=== PATIENT | female | born 1935 | race Caucasian/White ===

== ENCOUNTER 2022-05-03 21:36 | Inpatient (IN) ==
[2022-05-03] MEDS ORDERED: SODIUM CHLORIDE 0.9% 1000ML 1,000 ML IV ONE (21:41)
--- NOTE | 2022-05-03 21:44 | Emergency Department Note ---
Impression & Plan COVID-19 ADMIT ED Provider Note HPI: The patient is an 86-year-old female who presents the emergency department with hypotension and respiratory distress. Patient was found with altered mental status earlier this evening by family. She reportedly had been ill over the past several days with diarrhea and cough. According to family member at the bedside when they returned home patient was not responsive and EMS was contacted. Patient's daughter, Bambi, is at the bedside when the patient arrives with EMS, states that the patient is DNR/DNI. On arrival here to the ED the patient is very frail appearing, appears critically ill, she is hypotensive in the 70s systolic, she is saturating in the mid 90s on nonrebreather mask and exhibits limited responsiveness with sternal rub. ROS: -Neuro: Lethargy, altered mental status -Pulmonary: Respiratory distress, increased work of breathing *10 point review systems was conducted and is otherwise negative unless stated above *Outpatient medications and allergy history reviewed PE: General: Lethargic, frail-appearing, pale HEENT: Normocephalic, trachea midline Eyes: Pupils reactive bilaterally to light Pulmonary: Tachypnea with diminished breath sounds bilaterally Cardio: Regular rate and rhythm GI: Abdomen is soft, nontender, nondistended : No suprapubic tenderness MSK: No evidence of trauma or malformation of the extremities, no edema Skin: No evidence of rash Neuro: Lethargic, minimally responsive Psychiatric: N/A front desk monitor: - An order was placed for continuous cardiac monitoring - Patient was noted to be in sinus rhythm with a rate of 76 EKG: Rate: 67 Rhythm: Normal sinus rhythm Intervals: DE interval prolonged at 208 ms, QTC 507 ms, QRS within normal limits ST changes: No acute ST elevation Time: 2157 Interventions provided in ED: -IV morphine, IV glycopyrrolate Medical Decision Making: Patient presented to the emergency department with lethargy, hypotension, respiratory distress, altered mental status. This was noted by family when they found her earlier this evening. She had been ill for several days reportedly with cough and diarrhea. On arrival here to the ED the patient appears to be critically ill, she is minimally responsive even to sternal rub. Her daughter is at the bedside and states that the patient is DNR/DNI, I feel that resuscitative efforts at this point would be unlikely to result in any successful/meaningful outcome for the patient's recovery given her current clinical appearance, I did discuss this with the patient's daughter at the bedside and at this time she states that she would like to make the patient comfort measures only, I feel that this is reasonable given her age and current condition with poor prognosis. Some lab work and testing was initiated prior to this discussion and patient is positive for COVID-19, this was likely playing a role in her symptoms. She is also noted to have significant leukocytosis and is likely suffering from sepsis causing her hypotension and respiratory distress. Supplemental oxygen was removed, patient was given a dose of glycopyrrolate and a small dose of morphine for her work of breathing and comfort. Case was discussed with the on-call hospitalist for [facility], Dr. Keen, and the patient was admitted for hospice and end-of-life care. Patient's daughter at the bedside was in agreement to the above plan the patient was admitted for comfort measures. * CRITICAL CARE TIME: (33) minutes -Time spent at the bedside in discussion with family in regards to patient with critical condition requiring arrangement of comfort measures and end-of-life care, discussion with other physicians and arrangement of admission Diagnosis: 1. Altered mental status/lethargy 2. COVID-19 infection 3. Hypotension 4. Comfort measures only CODE STATUS Disposition: Admission Michi Sam DO Emergency Medicine Past Med/Surg History Medical History (Updated 05/04/22 @ 03:00 by Chang Paez MD) HLD (hyperlipidemia) HTN (hypertension) Family History (Updated 11/01/18 @ 23:56 by Joann Dumont) Other No significant family history Social History Smoking Status: Never smoker Preferred Language: Amharic Feels Safe at Home: Yes and Declines to Answer Allergies Allergies Allergy/AdvReac Type Severity Reaction Status Date / Time No Known Allergies Allergy Verified 05/03/22 22:02 Home Meds Home Medications Medication Instructions Recorded Confirmed atenolol 50 mg tablet 100 mg PO DAILY 11/01/18 05/03/22 folic acid 1 mg tablet 1 mg PO HS 11/01/18 05/03/22 hydrochlorothiazide 25 mg tablet 25 mg PO DAILY 11/01/18 05/03/22 niacin 500 mg tablet 500 mg PO AMPM 11/01/18 05/03/22 nifedipine 30 mg tablet,extended 30 mg PO DAILYBB 11/01/18 05/03/22 release 24 hr potassium chloride 10 mEq 10 meq PO DAILY 11/01/18 05/03/22 tablet,extended release aspirin 81 mg tablet,delayed 81 mg PO DAILY 05/03/22 05/03/22 release calcium carbonate 600 mg-vitamin 1 tab PO BID 05/03/22 05/03/22 D3 5 mcg (200 unit) tablet (Calcium 600 + D(3)) simvastatin 10 mg tablet 10 mg PO 2XWK 05/03/22 05/03/22 Results & Data (ED) Vital Signs Vital Signs - 24 hr 05/03/22 21:51 05/03/22 22:12 05/03/22 21:47 Temperature 34.4 C L 34.4 C L Temperature Source Rectal Rectal Pulse Rate 68 77 Pulse Rate [Apical] Pulse Rate from SpO2 Sensor 63 Respiratory Rate 30 H 17 Respiratory Depth Shallow Blood Pressure Blood Pressure Mean Pulse Oximetry 100 91 Oxygen Delivery Method Non-rebreather Oxygen Flow Rate 15 Sepsis Recent Fever Within 48 Hours No Sepsis New/Unexplained Change in Mental Status Yes Sepsis Action Taken by Nursing No Action Required 05/03/22 21:56 05/03/22 21:56 05/03/22 22:00 Temperature Temperature Source Pulse Rate 67 66 Pulse Rate [Apical] Pulse Rate from SpO2 Sensor 68 65 Respiratory Rate 26 H 25 H Respiratory Depth Blood Pressure Blood Pressure Mean 84 Pulse Oximetry 100 100 Oxygen Delivery Method Oxygen Flow Rate Sepsis Recent Fever Within 48 Hours Sepsis New/Unexplained Change in Mental Status Sepsis Action Taken by Nursing 05/03/22 22:15 05/03/22 22:16 05/03/22 22:16 Temperature Temperature Source Pulse Rate 63 68 Pulse Rate [Apical] Pulse Rate from SpO2 Sensor 62 63 Respiratory Rate 24 24 Respiratory Depth Blood Pressure 79/68 L Blood Pressure Mean 71 Pulse Oximetry 100 99 Oxygen Delivery Method Room Air Oxygen Flow Rate Sepsis Recent Fever Within 48 Hours Sepsis New/Unexplained Change in Mental Status Sepsis Action Taken by Nursing 05/03/22 23:43 Temperature Temperature Source Pulse Rate Pulse Rate [Apical] 75 Pulse Rate from SpO2 Sensor Respiratory Rate 12 Respiratory Depth Blood Pressure Blood Pressure Mean Pulse Oximetry 96 Oxygen Delivery Method Room Air Oxygen Flow Rate Sepsis Recent Fever Within 48 Hours Sepsis New/Unexplained Change in Mental Status Sepsis Action Taken by Nursing Laboratory Data Result diagrams: 05/03/22 22:26 05/03/22 22:26 Lab Results 05/03/22 05/03/22 05/03/22 Range/Units 22:26 22:26 22:26 WBC 25.26 H (4.8-10.8) K/ul RBC 3.44 L (3.93-5.22) M/uL Hgb 10.9 L (12.0-16.0) g/dl Hct 31.3 L (34.1-44.9) % MCV 91.0 (80.0-100.0) fL MCH 31.7 (25.0-34.0) pg MCHC 34.8 (32.0-36.0) g/dL RDW Std Deviation 49.3 H (36.4-46.3) fL RDW Coeff of Donna 15.2 H (11.5-14.5) % Plt Count 287 (130-400) K/uL MPV 12.1 (9.4-12.3) fL Immature Gran % (Auto) 1.5 % Neut % (Auto) 91.6 % Lymph % (Auto) 3.3 % Forest % (Auto) 2.5 % Eos % (Auto) 0.7 % Baso % (Auto) 0.4 % Neut # (Auto) 23.13 H (1.4-6.5) K/uL Lymph # (Auto) 0.84 L (1.2-3.4) K/uL Forest # (Auto) 0.64 (0.24-0.82) K/uL Eos # (Auto) 0.17 (0-0.50) K/uL Baso # (Auto) 0.11 (0-0.2) K/uL Immature Gran # (Auto) 0.37 H (0.00-0.02) K/uL Absolute Nucleated RBC 0.16 H (0-0) K/uL Nucleated RBC % (auto) 0.6 % Acanthocytes (Spur) 2+ VBG pH (7.36-7.41) VBG pCO2 (38-50) mmHg VBG pO2 mmHg VBG HCO3 mmol/L VBG O2 Saturation % VBG Base Excess mEq/L Sodium 145 (136-145) mmol/L Potassium 4.6 (3.5-5.1) mmol/L Chloride 104 (98-107) mmol/L Carbon Dioxide 16 L (21-32) mmol/L Anion Gap 25 H (3-11) BUN 232 H (6-23) mg/dl Creatinine 4.62 H* (0.6-1.2) mg/dl Est Cr Clr Drug Dosing 8.2 ml/min Est GFR ( Amer) 9.2 ml/min Est GFR (Non-Af Amer) 7.9 ml/min BUN/Creatinine Ratio 50.2 H (10-20) Glucose 117 H (70-99(Fasting)) mg/dl Lactate Calcium 8.6 (8.5-10.1) mg/dl Magnesium 2.7 H (1.7-2.4) mg/dl Total Bilirubin 2.0 H (0.2-1.0) mg/dl Direct Bilirubin 1.0 H (0-0.2) mg/dl AST 29 (13-39) U/L ALT 13 (7-52) U/L Alkaline Phosphatase 72 (34-104) U/L Troponin I High Sens 49.2 H (0-14) pg/ml Total Protein 6.4 (6.0-8.3) gm/dl Albumin 2.7 L (3.4-5.0) gm/dl Procalcitonin 5.80 H (0-0.5) ng/ml SARS-CoV-2, RNA, NAAT (NEGATIVE) 05/03/22 05/03/22 05/03/22 Range/Units 22:26 22:35 23:00 WBC (4.8-10.8) K/ul RBC (3.93-5.22) M/uL Hgb (12.0-16.0) g/dl Hct (34.1-44.9) % MCV (80.0-100.0) fL MCH (25.0-34.0) pg MCHC (32.0-36.0) g/dL RDW Std Deviation (36.4-46.3) fL RDW Coeff of Donna (11.5-14.5) % Plt Count (130-400) K/uL MPV (9.4-12.3) fL Immature Gran % (Auto) % Neut % (Auto) % Lymph % (Auto) % Forest % (Auto) % Eos % (Auto) % Baso % (Auto) % Neut # (Auto) (1.4-6.5) K/uL Lymph # (Auto) (1.2-3.4) K/uL Forest # (Auto) (0.24-0.82) K/uL Eos # (Auto) (0-0.50) K/uL Baso # (Auto) (0-0.2) K/uL Immature Gran # (Auto) (0.00-0.02) K/uL Absolute Nucleated RBC (0-0) K/uL Nucleated RBC % (auto) % Acanthocytes (Spur) VBG pH 7.31 L (7.36-7.41) VBG pCO2 34 L (38-50) mmHg VBG pO2 30 mmHg VBG HCO3 17 mmol/L VBG O2 Saturation < 60.0 % VBG Base Excess -8.2 mEq/L Sodium (136-145) mmol/L Potassium (3.5-5.1) mmol/L Chloride (98-107) mmol/L Carbon Dioxide (21-32) mmol/L Anion Gap (3-11) BUN (6-23) mg/dl Creatinine (0.6-1.2) mg/dl Est Cr Clr Drug Dosing ml/min Est GFR ( Amer) ml/min Est GFR (Non-Af Amer) ml/min BUN/Creatinine Ratio (10-20) Glucose (70-99(Fasting)) mg/dl Lactate Cancelled Calcium (8.5-10.1) mg/dl Magnesium (1.7-2.4) mg/dl Total Bilirubin (0.2-1.0) mg/dl Direct Bilirubin (0-0.2) mg/dl AST (13-39) U/L ALT (7-52) U/L Alkaline Phosphatase (34-104) U/L Troponin I High Sens (0-14) pg/ml Total Protein (6.0-8.3) gm/dl Albumin (3.4-5.0) gm/dl Procalcitonin (0-0.5) ng/ml SARS-CoV-2, RNA, NAAT POSITIVE A* (NEGATIVE) Administered Medications Morphine Sulfate (Morphine Sulfate 4 Mg/Ml 1 Ml Carp\Vial) 4 mg IV Q15M PRN PRN Reason: Pain/sob Stop: 05/17/22 23:58 Last Admin: 05/04/22 02:16 Dose: 4 mg Documented By: JNA Discontinued Medications Glycopyrrolate (Glycopyrrolate 0.2 Mg/Ml Vial) 0.2 mg IV ONCE ONE Stop: 05/03/22 22:57 Last Admin: 05/03/22 23:03 Dose: 0.2 mg Documented By: AN Sodium Chloride (Nss 1000ml) 1,000 mls @ 999 mls/hr IV .Q1H1M ONE Stop: 05/03/22 22:41 Last Infusion: 05/03/22 23:23 Dose: 0 mls/hr Documented By: Admin: 05/03/22 22:19 Dose: 999 mls/hr Documented By: KATHERINE Promethazine HCl (Phenergan) 6.25 mg in 50.25 mls @ 201 mls/hr IV ONE STA Stop: 05/04/22 00:26 Last Infusion: 05/04/22 00:37 Dose: 0 mls/hr Documented By: Admin: 05/04/22 00:21 Dose: 201 mls/hr Documented By: AN Morphine Sulfate (Morphine Sulfate 2 Mg/Ml Carp) 1 mg IV NOW STA Stop: 05/03/22 23:12 Last Admin: 05/03/22 23:22 Dose: 1 mg Documented By: AN Discharge Plan Visit Data Chief Complaint: Unresponsive ED Provider: Michi Sam Discharge Problem: COVID-19 Patient Disposition: Admitted As Inpatient Discharge Instructions Interventions: ED Discharge Assessment Last Done: 05/04/22 01:14
[2022-05-03 22:47] LABS: Hematocrit (blood only) 31.3 % (34.1-44.9); Hemoglobin 10.9 g/dl (12.0-16.0); Mean Corpuscular Hemoglobin 31.7 pg (25.0-34.0); Mean Corpuscular Hgb Conc 34.8 g/dL (32.0-36.0); Mean Platelet Volume 12.1 fL (9.4-12.3); Nucleated RBC # (auto) 0.16 K/uL (0-0); Nucleated RBC % (auto) 0.6 %; Platelet Count 287 K/uL (130-400); RDW Coefficient of Variation 15.2 % (11.5-14.5); RDW Standard Deviation 49.3 fL (36.4-46.3); Red Blood Count 3.44 M/uL (3.93-5.22); White Blood Count 25.26 K/ul (4.8-10.8)
[2022-05-03 22:52] LABS: Base Excess VBG -8.2 mEq/L; HCO3 VBG 17 mmol/L; Oxygen Saturation VBG < 60.0 %; PCO2 VBG 34 mmHg (38-50); PO2 VBG 30 mmHg; pH VBG 7.31 (7.36-7.41)
[2022-05-03] MEDS ORDERED: GLYCOPYRROLATE 0.2 MG/ML VIAL IV ONE (22:56)
[2022-05-03] MEDS ORDERED: MoRPHine SULFATE 2 MG/ML CARP IV STA (23:11)
[2022-05-03 23:36] LABS: Albumin Level 2.7 gm/dl (3.4-5.0); Calcium 8.6 mg/dl (8.5-10.1); Magnesium 2.7 mg/dl (1.7-2.4); Potassium 4.6 mmol/L (3.5-5.1); Total Protein 6.4 gm/dl (6.0-8.3); Troponin I High Sensitivity 49.2 pg/ml (0-14)
[2022-05-03 23:42] LABS: BUN Creatinine Ratio 50.2 (10-20)
[2022-05-03 23:43] LABS: Creatinine Clr Calc Pharmacy 8.2 ml/min; Est GFR (African American) 9.2 ml/min; Est GFR (Non-African American) 7.9 ml/min
[2022-05-03 23:50] LABS: Acanthocytes 2+; Basophils # (auto) 0.11 K/uL (0-0.2); Basophils % (auto) 0.4 %; Eosinophils # (auto) 0.17 K/uL (0-0.50); Eosinophils % (auto) 0.7 %; Immature Granulocytes # (auto) 0.37 K/uL (0.00-0.02); Immature Granulocytes % (auto) 1.5 %; Lymphocytes # (auto) 0.84 K/uL (1.2-3.4); Lymphocytes % (auto) 3.3 %; Monocytes # (auto) 0.64 K/uL (0.24-0.82); Monocytes % (auto) 2.5 %; Neutrophils # (auto) 23.13 K/uL (1.4-6.5); Neutrophils % (auto) 91.6 %
--- NOTE | 2022-05-03 23:55 | History & Physical Report ---
Date of Service May 03, 2022 Assessment & Plan (1) Encephalopathy: Plan: In the setting of COVID-19 illness Multifactorial: ARF on CKD UGI B Possible sepsis GMF Comfort measures as per patient's family request. Patient family not interested in additional testing and medical intervention. DNR as per patient's prior directives. Patient daughter requesting updates for providers. Ms. Bambi Capellan, contact #[phone]. Text document was generated using [employer] voice recognition software. It may contain grammatical or spelling errors. Kindly contact undersigned for clarification of any documentation item in question. History of Present Illness Chief Complaint: Unresponsiveness as per daughter Primary Care Provider: Yuliana Calle PA-C (Patient has not met her.) History obtained from patient family and records. Unable to obtain history from patient secondary to unresponsive state. Medical history significant for CVA, PVD, hypertension, hyperlipidemia, CRI (baseline creatinine 1.3), chronic anemia (baseline hemoglobin of 11), history stress incontinence as per records. 3 weeks ago, patient noted by daughter to have cough symptoms. No chest pain, no shortness of breath. Not sure about recent COVID-19 contacts. Patient has not received COVID-19 vaccination. Poor appetite followed by diarrhea symptoms today. Patient has not seen PCP from [facility] for more than a year because she is stubborn as per daughter. Appointment with new PCP with [facility] provider scheduled by daughter to evaluate patient. Patient noted to be unresponsive at home. Coffee-ground emesis noted in the ambulance en route to the hospital. Initial SBP at the ER noted to be 70s. Daughter requested for comfort measures after discussion with ER provider. Medical History as above Surgical History : Colpopexy, urethral suspension, paravaginal defect repair, mesh placement pelvic floor, cystocele/rectocele repair Family History : Heart disease Personal/Social history : Non-smoker, no EtOH intake, homemaker in her younger years, lives with daughter Allergies Allergy/AdvReac Type Severity Reaction Status Date / Time No Known Allergies Allergy Verified 05/03/22 22:02 Home Medications Medication Instructions Recorded Confirmed Type atenolol 50 mg tablet 100 mg PO DAILY 11/01/18 05/03/22 History folic acid 1 mg tablet 1 mg PO HS 11/01/18 05/03/22 History hydrochlorothiazide 25 mg tablet 25 mg PO DAILY 11/01/18 05/03/22 History niacin 500 mg tablet 500 mg PO AMPM 11/01/18 05/03/22 History nifedipine 30 mg tablet,extended 30 mg PO DAILYBB 11/01/18 05/03/22 History release 24 hr potassium chloride 10 mEq 10 meq PO DAILY 11/01/18 05/03/22 History tablet,extended release aspirin 81 mg tablet,delayed 81 mg PO DAILY 05/03/22 05/03/22 History release calcium carbonate 600 mg-vitamin 1 tab PO BID 05/03/22 05/03/22 History D3 5 mcg (200 unit) tablet (Calcium 600 + D(3)) simvastatin 10 mg tablet 10 mg PO 2XWK 05/03/22 05/03/22 History Past Med/Surg History Medical History (Updated 05/04/22 @ 03:00 by Chang Paez MD) HLD (hyperlipidemia) HTN (hypertension) Family History (Updated 11/01/18 @ 23:56 by Joann Dumont) Other No significant family history Social History Smoking Status: Smoker, status unknown Second Hand Exposure: No; Do You Dip or Chew Tobacco: No; Hx Alcohol Use: No Hx Substance Use: No Preferred Language: Armenian Communication Ability: Unable Communication Ability Comment: pt is unresponsive and actively dying Ug Designer Required: No Beliefs That Will Affect Care: None Current Living Situation: Family Other Information That Helps Us Care for You: No Feels Safe at Home: Yes Review of Systems Review of Systems: Could not be reliably obtained secondary to unresponsive state Physical Exam Physical Exam: GENERAL: Unresponsive, no respiratory distress SKIN: Pallor, warm HEENT: Pale palpebral conjunctivae, no ptosis, dry buccal mucosa, dry coffee- ground emesis per orem NECK : Supple, no tenderness CHEST : Decreased breath sounds, no tenderness HEART : RRR, no obvious murmurs ABDOMEN: Some distention, nontender EXTREMITIES : Minimal LE swelling, no LE tenderness, no other conspicuous deformities noted NEUROLOGIC : Unresponsive, no facial asymmetry, gait and stance not assessed Results & Data Results & Data ([facility]) Vital Signs (Past 12 Hours) Vital Signs Temp Pulse Pulse Resp BP Pulse Ox O2 Del Method 05/03/22 23:43 75 12 96 Room Air 05/03/22 22:16 79/68 L 05/03/22 22:16 68 24 99 Room Air 05/03/22 22:15 63 24 100 05/03/22 22:00 66 25 H 100 05/03/22 21:56 67 26 H 100 05/03/22 21:47 77 17 91 05/03/22 22:12 34.4 C L 05/03/22 21:51 34.4 C L 68 30 H 100 Non-rebreather O2 Flow Rate 05/03/22 23:43 05/03/22 22:16 05/03/22 22:16 05/03/22 22:15 05/03/22 22:00 05/03/22 21:56 05/03/22 21:47 05/03/22 22:12 05/03/22 21:51 15 Laboratory Results Laboratory Results WBC 25.26 K/ul (4.8-10.8) H 05/03/22 22:26 RBC 3.44 M/uL (3.93-5.22) L 05/03/22 22:26 Hgb 10.9 g/dl (12.0-16.0) L 05/03/22 22:26 Hct 31.3 % (34.1-44.9) L 05/03/22 22:26 MCV 91.0 fL (80.0-100.0) 05/03/22 22: MCH 31.7 pg (25.0-34.0) 05/03/22 22: MCHC 34.8 g/dL (32.0-36.0) 05/03/22 22:26 RDW Std Deviation 49.3 fL (36.4-46.3) H 05/03/22 22: RDW Coeff of Donna 15.2 % (11.5-14.5) H 05/03/22 22: Plt Count 287 K/uL (130-400) 05/03/22 22:26 MPV 12.1 fL (9.4-12.3) 05/03/22 22: Immature Gran % (Auto) 1.5 % 05/03/22 22: Neut % (Auto) 91.6 % 05/03/22 22: Lymph % (Auto) 3.3 % 05/03/22 22: Pratt % (Auto) 2.5 % 05/03/22 22: Eos % (Auto) 0.7 % 05/03/22 22: Baso % (Auto) 0.4 % 05/03/22 22: Neut # (Auto) 23.13 K/uL (1.4-6.5) H 05/03/22 22: Lymph # (Auto) 0.84 K/uL (1.2-3.4) L 05/03/22 22: Pratt # (Auto) 0.64 K/uL (0.24-0.82) 05/03/22 22: Eos # (Auto) 0.17 K/uL (0-0.50) 05/03/22 22: Baso # (Auto) 0.11 K/uL (0-0.2) 05/03/22 22: Immature Gran # (Auto) 0.37 K/uL (0.00-0.02) H 05/03/22 22: Absolute Nucleated RBC 0.16 K/uL (0-0) H 05/03/22 22: Nucleated RBC % (auto) 0.6 % 05/03/22 22: Acanthocytes (Spur) 2+ 05/03/22 22: VBG pH 7.31 (7.36-7.41) L 05/03/22 22: VBG pCO2 34 mmHg (38-50) L 05/03/22 22: VBG pO2 30 mmHg 05/03/22 22: VBG HCO3 17 mmol/L 05/03/22 22: VBG O2 Saturation < 60.0 % 05/03/22: VBG Base Excess -8.2 mEq/L 05/03/22 22: Sodium 145 mmol/L (136-145) 05/03/22 22: Potassium 4.6 mmol/L (3.5-5.1) 05/03/22 22: Chloride 104 mmol/L (98-107) 05/03/22: Carbon Dioxide 16 mmol/L (21-32) L 05/03/22 22: Anion Gap 25 (3-11) H 05/03/22 22:26 BUN 232 mg/dl (6-23) H 05/03/22 22: Creatinine 4.62 mg/dl (0.6-1.2) H* 05/03/22 22:26 Est Cr Clr Drug Dosing 8.2 ml/min 05/03/22 22:26 Est GFR ( Amer) 9.2 ml/min 05/03/22 22:26 Est GFR (Non-Af Amer) 7.9 ml/min 05/03/22 22:26 BUN/Creatinine Ratio 50.2 (10-20) H 05/03/22 22:26 Glucose 117 mg/dl (70-99(Fasting)) H 05/03/22 22:26 Lactate Cancelled 05/03/22 23:00 Calcium 8.6 mg/dl (8.5-10.1) 05/03/22 22: Magnesium 2.7 mg/dl (1.7-2.4) H 05/03/22 22: Total Bilirubin 2.0 mg/dl (0.2-1.0) H 05/03/22 22:26 Direct Bilirubin 1.0 mg/dl (0-0.2) H 05/03/22 22:26 AST 29 U/L (13-39) 05/03/22 22:26 ALT 13 U/L (7-52) 05/03/22 22:26 Alkaline Phosphatase 72 U/L (34-104) 05/03/22 22:26 Troponin I High Sens 49.2 pg/ml (0-14) H 05/03/22 22:26 Total Protein 6.4 gm/dl (6.0-8.3) 05/03/22 22:26 Albumin 2.7 gm/dl (3.4-5.0) L 05/03/22 22:26 Procalcitonin 5.80 ng/ml (0-0.5) H 05/03/22 22:26 SARS-CoV-2, RNA, NAAT POSITIVE (NEGATIVE) A* 05/03/22 22:35 Diagnostic Findings Chest x-ray as per my interpretation atelectasis EKG as per my interpretation :Rate 65, NSR, normal axis, no ischemia
[2022-05-03] MEDS ORDERED: LORazepam 0.5 MG in SYRINGE 0 ML IV PRN (23:59)
[2022-05-03] MEDS ORDERED: PROMETHAZINE HCL 6.25 MG in SODIUM CHLORIDE 0.9% 50 ML IV PRN (23:59)
[2022-05-04] MEDS ORDERED: PROMETHAZINE 6.25 MG/50.25 ML BAG IV STA (00:12)
[2022-05-04] MEDS ORDERED: PROMETHAZINE HCL 6.25 MG in SODIUM CHLORIDE 0.9% 50 ML IV ONE (00:15)
[2022-05-04] MEDS: MoRPHine SULFATE 4 MG/ML 1 ML CARP\\VIAL IV PRN ×2 (02:16→03:41)
--- NOTE | 2022-05-04 04:54 | Discharge Summary ---
Date of Service May 04, 2022 Admission HPI Per Admitting Provider History obtained from patient family and records. Unable to obtain history from patient secondary to unresponsive state. Medical history significant for CVA, PVD, hypertension, hyperlipidemia, CRI (baseline creatinine 1.3), chronic anemia (baseline hemoglobin of 11), history stress incontinence as per records. 3 weeks ago, patient noted by daughter to have cough symptoms. No chest pain, no shortness of breath. Not sure about recent COVID-19 contacts. Patient has not received COVID-19 vaccination. Poor appetite followed by diarrhea symptoms today. Patient has not seen PCP from [facility] for more than a year because she is stubborn as per daughter. Appointment with new PCP with [facility] provider scheduled by daughter to evaluate patient. Patient noted to be unresponsive at home. Coffee-ground emesis noted in the ambulance en route to the hospital. Initial SBP at the ER noted to be 70s. Daughter requested for comfort measures after discussion with ER provider. Medical History as above Surgical History : Colpopexy, urethral suspension, paravaginal defect repair, mesh placement pelvic floor, cystocele/rectocele repair Family History : Heart disease Personal/Social history : Non-smoker, no EtOH intake, homemaker in her younger years, lives with daughter Discharge Data Consultations 05/03/22 23:20 ED Decision to Admit Stat 05/04/22 01:36 Consult Palliative Care Routine Hospital Course (1) Encephalopathy: In the setting of COVID-19 illness Multifactorial: ARF on CKD UGI B Possible sepsis GMF Comfort measures as per patient's family request. Patient family not interested in medical intervention. DNR as per patient's prior directives. Patient daughter requesting updates for providers. Ms. Bambi Capellan, contact #[phone]. (Preceding documentation as per admitting provider.) Comfort measures initiated upon arrival at the floor. Patient pronounced on 05/04/22 at 5 AM. Total time to prepare this discharge summary was less than 10 minutes. Text document was generated using Skype voice recognition software. It may contain grammatical or spelling errors. Kindly contact undersigned for clarification of any documentation item in question.
--- NOTE | 2022-05-04 09:42 | Electrocardiogram Report ---
Test Reason : Blood Pressure : / mmHG Vent. Rate : 067 BPM Atrial Rate : 067 BPM P-R Int : 208 ms QRS Dur : 080 ms QT Int : 480 ms P-R-T Axes : 068 048 055 degrees QTc Int : 507 ms Normal sinus rhythm with 1st degree A-V block Abnormal ECG When compared with ECG of 01-NOV-2018 20:08, No significant change Confirmed by Maurizio Clay ([id number]) on 05/04/2022 9:41:35 AM Referred By: REFERRED SELF Confirmed By:Maurizio Clay
--- NOTE | 2022-05-04 10:34 | XRay Report ---
XR chest 1V portable HISTORY: Sepsis COMPARISON: Chest 11/01/2018. FINDINGS: Mild elevation of the left hemidiaphragm. No new focal lung consolidations to suggest pneum onia. No evidence for pulmonary edema. No pleural effusions. No pneumothorax. The heart is normal in size. Possible 6 mm nodule within the right medial lung base. This was likely obscured on the prior s tudy. IMPRESSION: 1. No acute process within the chest. 2. Possible 6 mm right medial lung base nodule. ACT 112: Negative or not required by law. Electronically signed by: Edward Montenegro M.D. 05/04/2022 10:33 AM
== END 2022-05-04 06:19 | disposition expired | DRG 871 ==
LOC: ED 21:36 → 2W 23:57